=== PATIENT | female | born 1955 | race Hispanic/Latino ===

== ENCOUNTER 2020-01-08 11:54 | Observation (INO) | payer MEDICARE, OTHER ==
[~2020-01-08] VITALS: Ht 167.6 cm; Wt 131.0 kg
[2020-01-08] MEDS ORDERED: CEFTRIAXONE SODIUM 2 GM VIAL ONE (13:40)
[2020-01-08] MEDS ORDERED: DILTIAZEM HCL 5 MG/ML 10 ML VIAL IV ONE (13:40)
[2020-01-08] MEDS ORDERED: SODIUM CHLORIDE 0.9% 50 ML IV ONE (13:41)
[2020-01-08] MEDS ORDERED: SODIUM CHLORIDE 0.9% 1000ML 1,000 ML IV ONE (15:14)
[2020-01-08] MEDS ORDERED: DILTIAZEM 125MG+100 ML NS 125 ML IV SCH (15:15)
[2020-01-08] MEDS ORDERED: SODIUM CHLORIDE 0.9% 1000ML 1,000 ML IV SCH (15:15)
[2020-01-08 18:23] VITALS: BP 128/68; PULSE 85; RESP 18; TEMP 98.1
[2020-01-08 19:00] VITALS: BP 148/72; PULSE 80; RESP 20; TEMP 98.1
[2020-01-08] MEDS ORDERED: POTASSIUM CHLORIDE 20MEQ/100ML 100 ML IV PRN ×2 (20:15)
[2020-01-08] MEDS ORDERED: LIDOCAINE HCL-MPF 1% 2ML VIAL IV PRN ×2 (20:15)
[2020-01-08] MEDS ORDERED: POTASSIUM CHLORIDE 20 MEQ ERTAB PO PRN (20:15)
[2020-01-08] MEDS ORDERED: POTASSIUM CHLORIDE 10% ELIXIR 20 MEQ/15 ML UDCUP PO PRN (20:15)
[2020-01-08] MEDS ORDERED: PHARMACY COMMUNICATION MISC SCH (20:45)
[2020-01-08] MEDS ORDERED: SIMVASTATIN 10 MG TABLET PO SCH (21:00)
[2020-01-08] MEDS ORDERED: BUSPIRONE HCL 5 MG TABLET PO SCH (21:00)
[2020-01-08] MEDS ORDERED: ENOXAPARIN SODIUM 120 MG/0.8ML SQ SCH (21:00)
[2020-01-08] MEDS ORDERED: BACLOFEN 10 MG TABLET PO SCH (21:00)
[2020-01-08 23:00] VITALS: BP 149/65; PULSE 85; RESP 20; TEMP 98
[2020-01-09 03:00] VITALS: BP 139/55; PULSE 78; RESP 20; TEMP 98.6
[2020-01-09] MEDS ORDERED: LEVOTHYROXINE 125 MCG TABLET PO SCH (06:30)
--- NOTE | 2020-01-09 06:39 | NUR ---
Dr Del Rosario rounded on patient. Ok to Discharge home per sheba
--- NOTE | 2020-01-09 08:16 | NUR ---
PATIENT DISCHARGED AT THIS TIME. Patient awaiting family to transport home. Patient is bathing in the meantime.
[2020-01-09] MEDS ORDERED: PHENAZOPYRIDINE HCL 200 MG TABLET PO SCH (08:30)
[2020-01-09] MEDS ORDERED: FAMOTIDINE 20MG TAB 20 MG TAB PO SCH (09:00)
[2020-01-09] MEDS ORDERED: CEFTRIAXONE SODIUM 1 GM IVP SCH (09:00)
[2020-01-09] MEDS ORDERED: PANTOPRAZOLE SODIUM 40 MG TABLET.DR PO SCH (09:00)
[2020-01-09] MEDS ORDERED: CEPHALEXIN 500 MG CAPSULE PO SCH (09:00)
[2020-01-09] MEDS ORDERED: METOPROLOL SUCCINATE 50 MG TAB.SR.24H PO SCH (09:00)
[2020-01-09] MEDS ORDERED: LOSARTAN 50 MG TABLET PO SCH (09:00)
== END 2020-01-09 09:00 | disposition home or self-care (01) ==
LOC: EDH 11:54 → EDHIP 13:54 → INTOOBSV 13:54 → 4DH 18:22
PROVIDERS: ADMIT Internal Medicine; ATTEND Internal Medicine
DX: E86.0 Dehydration (principal); N39.0 Urinary tract infection, site not specified; I48.91 Unspecified atrial fibrillation; E78.00 Pure hypercholesterolemia, unspecified; I10 Essential (primary) hypertension; Z90.49 Acquired absence of other specified parts of digestive tract
CPT/HCPCS: 36415 ×2; 71045; 74176; 80053 ×2; 81001; 82550 ×2; 83605 ×2; 83874; 84145; 84443 ×2; 84484 ×2; 85025 ×2; 85610; 85730; 87040 ×2; 87088; 93005; 99285; G0378 ×12; J0696; J1650 ×2; J3490 ×3; J7030

== ENCOUNTER 2020-05-05 09:03 | Day surgery (SDC) | payer MEDICARE, OTHER ==
[2020-05-02 14:00] VITALS: BP 194/67
[2020-05-02 14:54] LABS: BASOPHILS % (AUTO) 0.7 % (0.0-5.0); EOSINOPHILS % (AUTO) 2.6 % (0.0-8.0); HEMATOCRIT 43.5 % (36-48); LYMPHOCYTES % (AUTO) 36.4 % (21.0-51.0); MEAN CORPUSCULAR HEMOGLOBIN 29.6 pg (27.0-33.0); MEAN CORPUSCULAR HGB CONC 31.7 g/dL (32.0-36.0); MEAN CORPUSCULAR VOLUME 93.1 fL (79-99); MONOCYTES % (AUTO) 8.4 % (3.0-13.0); NEUTROPHILS % (AUTO) 51.6 % (40.0-77.0); PLATELET COUNT (AUTO) 217 K/uL (130-400); RED BLOOD CELL COUNT(AUTO) 4.67 MIL/uL (4.00-5.50); RED CELL DISTRIBUTION WIDTH 12.9 % (11.0-15.5); WHITE BLOOD COUNT (AUTO) 7.3 K/uL (4.8-10.8)
[2020-05-02 15:09] LABS: CREATININE 0.9 mg/dL (0.5-1.5); POTASSIUM 3.6 mmol/L (3.5-5.1)
--- NOTE | 2020-05-04 11:20 | NUR ---
medication: dr. klein made aware of patient still taking xarelto, pt instructed not to take tomorrow. will proceed with surgery.
[~2020-05-05] VITALS: Ht 162.6 cm; Wt 128.7 kg
[2020-05-05] VITALS (17 sets, daily range): BP systolic 121–156; BP diastolic 50–68
[~2020-05-05 09:03] MED LIST: BACL10TA PO; BUSP10TA3 PO; FAMO-136 PO; LEVO125T11 PO; MAGN400C PO; METO-391 PO; NAPR-1023 PO; PANT40TA55 PO; PRAV20TA4 PO; RIVA20TA PO; TELM20TA8 PO; ZOSYN 3.375GM+NS 50ML 50 ML IV SCH
[2020-05-05] MEDS ORDERED: LACTATED RINGERS 1000ML 1,000 ML IV ONE (09:40)
[2020-05-05] MEDS ORDERED: LEG CRAMPS PO (10:35)
[2020-05-05] MEDS ORDERED: IOHEXOL-350 50ML VIAL IV ONE (10:43)
[2020-05-05] MEDS ORDERED: MIDAZOLAM HCL 1 MG/ML 2ML VIAL ONE (11:10)
[2020-05-05] MEDS ORDERED: FENTANYL CITRATE PF 50 MCG/1 ML 2ML VIAL ONE (12:37)
[2020-05-05] MEDS ORDERED: LIDOCAINE HCL MPF 1% 5ML VIAL ONE (12:37)
[2020-05-05] MEDS ORDERED: SUCCINYLCHOLINE 200MG/10ML SYR ONE (12:37)
[2020-05-05] MEDS ORDERED: PROPOFOL 10 MG/ML 20ML VIAL IV ONE (12:37)
--- NOTE | 2020-05-05 14:45 | NUR ---
post received pt from [facility], s/p cystocopy , [address] draining pink color urine. pt awake and alert in bed, no distress noted. vs stable on arrival.
--- NOTE | 2020-05-05 14:50 | NUR ---
fc fc discontinued per md orders. pt/ spouse instructed that pt dtv in 8 hrs. they verbalized understanding
--- NOTE | 2020-05-05 15:15 | NUR ---
dc pt dc home via wc, no distress noted. pt denied any pain or discomforts, pt accompanied by spouse.
== END 2020-05-05 15:15 | disposition home or self-care (01) ==
LOC: DAH 09:03
PROVIDERS: ATTEND Urology
DX: N30.21 Other chronic cystitis with hematuria (principal); Z20.828 Contact with and (suspected) exposure to other viral communicable diseases; N81.12 Cystocele, lateral; N81.89 Other female genital prolapse; J44.9 Chronic obstructive pulmonary disease, unspecified; E66.01 Morbid (severe) obesity due to excess calories; E03.9 Hypothyroidism, unspecified; I10 Essential (primary) hypertension; E78.5 Hyperlipidemia, unspecified; K21.9 Gastro-esophageal reflux disease without esophagitis; I48.91 Unspecified atrial fibrillation; Z79.890 Hormone replacement therapy; Z87.440 Personal history of urinary (tract) infections; Z79.899 Other long term (current) drug therapy; Z90.49 Acquired absence of other specified parts of digestive tract
CPT/HCPCS: 36415; 52005; 74420; 80048; 85025; 93005; A4215; A4221; A4222; A4223; A4344; A4358; A4510; A4600; A4663; A4930; A6260; C1758; C9803; J0330; J2250; J2704; J3010; J3490; J7120 ×2; Q9967; U0003; J2543

== ENCOUNTER 2022-10-10 19:09 | Emergency (ER) | payer MEDICARE, OTHER ==
[~2022-10-10] VITALS: Ht 165.1 cm; Wt 127.0 kg
[~2022-10-10 19:09] MED LIST changes: +LEG CRAMPS PO; -ZOSYN 3.375GM+NS 50ML 50 ML IV SCH
[2022-10-10 20:03] LABS: APPEARANCE,URINE CLEAR (CLEAR); BILIRUBIN,URINE NEGATIVE (NEGATIVE); COLOR,URINE YELLOW (YELLOW); GLUCOSE, URINE (UA) NEGATIVE (NEGATIVE); KETONES,URINE 10 mg/dL (NEGATIVE); LEUKOCYTE ESTERASE ,URINE NEGATIVE Leu/uL (NEGATIVE); NITRATE,URINE NEGATIVE (NEGATIVE); PROTEIN,URINE 10 mg/dL (NEGATIVE)
[2022-10-10 20:12] LABS: BACTERIA,URINE RARE /HPF (None Seen); MUCUS,URINE FEW LPF (None Seen); SQUAMOUS EPITHELIAL CELL,UR RARE /HPF (0-2); YEAST,URINE BUDDING RARE /HPF (None Seen)
[2022-10-10] MEDS ORDERED: SOLU-MEDROL 125MG VIAL IM ONE (21:30)
[2022-10-10] MEDS ORDERED: SOLU-MEDROL 125MG VIAL ONE (21:48)
[2022-10-10 22:16] VITALS: BP 165/68
== END 2022-10-10 22:20 | disposition home or self-care (01) ==
LOC: EDH 19:09
DX: R21 Rash and other nonspecific skin eruption (principal); I10 Essential (primary) hypertension; E78.00 Pure hypercholesterolemia, unspecified; Z90.49 Acquired absence of other specified parts of digestive tract; Z88.8 Allergy status to other drugs, medicaments and biological substances; Z79.899 Other long term (current) drug therapy
CPT/HCPCS: 99283; 81001; 96372; J2930

== ENCOUNTER 2022-10-15 12:36 | Emergency (ER) | payer MEDICARE, OTHER | END 2022-10-15 13:27 | disposition left against medical advice (07) | LOC: EDH 12:36 | DX: K62.5 Hemorrhage of anus and rectum (principal); Z53.21 Procedure and treatment not carried out due to patient leaving prior to being seen by health care provider ==

== ENCOUNTER → 2023-09-05 | Outpatient (CLI) | payer MEDICARE, OTHER | END | disposition home or self-care (01) | LOC: RAH 12:29 | PROVIDERS: ATTEND Internal Medicine | DX: I70.203 Unspecified atherosclerosis of native arteries of extremities, bilateral legs (principal); M79.605 Pain in left leg; M79.604 Pain in right leg | CPT/HCPCS: 93925 ==

== ENCOUNTER 2024-06-23 17:15 | Inpatient (IN) | payer MEDICARE, OTHER ==
[~2024-06-23] VITALS: Ht 162.6 cm; Wt 110.7 kg
[2024-06-23 18:37] LABS: MEAN CORPUSCULAR HEMOGLOBIN 31.4 pg (27.0-33.0); MEAN CORPUSCULAR HGB CONC 32.6 g/dL (32.0-36.0); MEAN CORPUSCULAR VOLUME 96.4 fL (79-99); RED BLOOD CELL COUNT(AUTO) 4.46 MIL/uL (4.00-5.50); RED CELL DISTRIBUTION WIDTH 13.2 % (11.0-15.5); WHITE BLOOD COUNT (AUTO) 12.4 K/uL (4.8-10.8)
[2024-06-23 18:51] LABS: POTASSIUM 3.9 mmol/L (3.5-5.1)
[2024-06-23 18:56] LABS: ALBUMIN 3.6 g/dL (3.5-5.0); BILIRUBIN,DIRECT 0.3 mg/dL (0.0-0.3); BILIRUBIN,TOTAL 1.4 mg/dL (0.2-1.0); TOTAL PROTEIN, SERUM 7.6 g/dL (6.0-8.3)
--- NOTE | 2024-06-23 19:38 | NUR ---
report given to Emilia THORNTON
[2024-06-23 19:45] LABS: CREATINE KINASE, TOTAL 69 U/L (21-232)
[2024-06-23 20:00] VITALS: O2SAT 98
[2024-06-23 20:27] VITALS: BP 127/66; PULSE 120; RESP 18; TEMP 98.6
--- NOTE | 2024-06-23 21:09 | HMCIMG ---
CHEST 1VW CLINICAL HISTORY: A-Fib COMPARISON: 01/08/2020 TECHNIQUE: Single view of the chest was obtained. FINDINGS: The lungs are hypoventilated with hypoventilatory changes. The cardiac size and mediastinum are unremarkable. The bony structures are within normal limits. IMPRESSION: Hypoventilation.
[2024-06-23] MEDS ORDERED: cefTRIAXone 1G VIAL IVPB SCH (22:00)
[2024-06-23] MEDS ORDERED: PHARMACY COMMUNICATION MISC SCH ×2 (22:00→22:30)
[2024-06-23] MEDS: AZITHROMYCIN 500MG+NS 250ML 250 ML IVPB SCH (22:03)
[2024-06-23] MEDS: Solu-medROL 125MG VIAL IVP SCH (22:04)
[2024-06-23 23:28] LABS: CREATINE KINASE, TOTAL 40 U/L (21-232)
[2024-06-23 23:46] VITALS: BP 105/58; PULSE 116; RESP 18; TEMP 98.8
[2024-06-24] VITALS (12 sets, daily range): BP systolic 107–128; BP diastolic 48–67; PULSE 90–124; RESP 18–20; TEMP 97.5–98.4; O2SAT 92–98
[2024-06-24] MEDS: atorVAStatin 10 MG TABLET PO SCH (00:02)
[2024-06-24] MEDS ORDERED: guaiFENesin-DM 200/20MG 10ML PO PRN (04:30)
[2024-06-24] MEDS ORDERED: DiphenhydrAMINE HCL 25 MG CAPSULE PO PRN (04:30)
[2024-06-24] MEDS ORDERED: IpraTROPium/alBUTERol SULFATE 3 ML SOLUTION IH PRN (04:30)
[2024-06-24] MEDS ORDERED: acetaMINOPHEN 325 MG TAB PO PRN (04:30)
[2024-06-24] MEDS ORDERED: ZOLPidem TARTrate 5 MG TAB PO PRN (04:30)
[2024-06-24] MEDS ORDERED: cloNIDine HCL 0.1 MG TABLET PO PRN (04:30)
[2024-06-24] MEDS ORDERED: PHARMACY COMMUNICATION MISC SCH (05:00)
[2024-06-24 05:28] LABS: HEMATOCRIT 39.8 % (36-48); MEAN CORPUSCULAR HEMOGLOBIN 31.3 pg (27.0-33.0); MEAN CORPUSCULAR HGB CONC 33.2 g/dL (32.0-36.0); MEAN CORPUSCULAR VOLUME 94.3 fL (79-99); RED BLOOD CELL COUNT(AUTO) 4.22 MIL/uL (4.00-5.50); RED CELL DISTRIBUTION WIDTH 13.1 % (11.0-15.5); WHITE BLOOD COUNT (AUTO) 16.8 K/uL (4.8-10.8)
[2024-06-24 06:11] LABS: ALANINE AMINOTRANSFERASE 29 U/L (12-78); ASPARTATE AMINOTRANSFERASE 33 U/L (10-37); BILIRUBIN,DIRECT 0.3 mg/dL (0.0-0.3); BILIRUBIN,TOTAL 1.2 mg/dL (0.2-1.0); CARBON DIOXIDE 24 mmol/L (21-32); CHLORIDE 103 mmol/L (101-111); CREATINE KINASE, TOTAL 30 U/L (21-232); GLOMERULAR FILTR. RATE CALC 61 mL/min (>90); GLUCOSE,RANDOM 137 mg/dL (70-105); POTASSIUM 4.1 mmol/L (3.5-5.1); SODIUM SERUM 138 mmol/L (136-145); UREA NITROGEN, BLOOD 20 mg/dL (7-18)
[2024-06-24] MEDS: IpraTROPium/alBUTERol SULFATE 3 ML SOLUTION IH SCH (07:02)
[2024-06-24] MEDS: ZOSYN 3.375GM +NS 50ML IVPB SCH (09:26)
[2024-06-24] MEDS: metOPROLol sucCINATE 50 MG TAB.SR.24H PO SCH (10:54)
--- NOTE | 2024-06-24 12:00 | NUR ---
report given to Brenna transfer to room 422 via wheelchair
--- NOTE | 2024-06-24 12:44 | NUR ---
PATIENT ARRIVED TO UNIT VIA WHEELCHAIR. NO S/S OF DISTRESS NOTED. TELE MONITOR IN PLACE. 20G TO LEFT HAND INTACT AND PATENT. BED IN LOWEST POSITION CALL LIGHT IN REACH
--- NOTE | 2024-06-24 17:40 | HMCSR ---
APPROVED REPORT EXAM: Two-dimensional and M-mode echocardiogram with Doppler and color Doppler. INDICATION ICD: Atrial fibrillation 2D Dimensions RVDd3.4 cmLVEF(%)60.1 (>50%)LVED Vol(simp.)50.0 mL IVSd1.2 (0.7-1.1cm)FS(%)32 %LVES Vol(simp.)17.0 mL LVDd4.1 (3.8-5.6cm)LA (2D)4.8 (1.6-4.0cm)LVEF(%, simp.)66 % PWd1.4 (0.7-1.1cm)Ao Root(2D)3.4 (2.0-3.7cm)LA ESV INDEX (4CH)53.60 mL/m2 IVSs1.2 cmLVOT diam1.9 (1.8-2.4cm)LA ESV INDEX (2CH)43.10 mL/m2 LVDs2.8 (2.5-4.0cm)IVC diam2.1 cmLA ESV INDEX (BP)50.20 mL/m2 PWs1.3 cm Deformation Strain Apical 4-15.0 % Apical 2-17.0 % Apical 3-17.0 % Global Strain-16.0 % M-Mode Dimensions EPSS0.9 cm LA (MM)5.5 (1.6-4.0cm) Ao Root(MM)2.7 (2.0-3.7cm) Aortic Valve AoV VTI0.3 mAo Mean GR4.0 mmHgLVOT VTI0.19 m CORBY (VMAX)2.0 cm2AVA (VTI) 2.0 cm2 Mitral Valve MV E Vael918.6 cm/sDECEL Qdpb918 ms MV A Vmax83.4 cm/sP 1/2 T66 ms E/A ratio1.3MVA (PHT)3.4 cm2 TDI E/E' Weccef85.1E/E' Kjqpewd36.3 Medial E' Peak V8.20 cm/sLateral E' Peak V10.40 cm/s Pulmonary Valve PV VTI0.19 mPV Mean GR3 mmHg Tricuspid Valve TR Vmax2.0 m/sRAP (EST) 8 qiJbWEMN24.0 mmHg TR Peak GR17.0 mmHg Left Ventricle Left ventricular cavity size is normal. GLS-16.0% Mild concentric left ventricular hypertrophy. LVEF is 55-60%. E-a fusion Right Ventricle The right ventricle is normal size. The right ventricular systolic function is normal. Atria The left atrium is severely dilated. LASVI 50mL/m. The right atrium is moderately dilated. Aortic Valve The aortic valve is normal in structure and function. No aortic regurgitation is present. There is no aortic valvular stenosis. Mitral Valve Posterior annular calcification noted. The mitral valve is mildly thickened. There is no mitral valve regurgitation noted. There is no mitral valve stenosis. Tricuspid Valve The tricuspid valve is normal in structure and function. There is trace of tricuspid valve regurgitat ion noted. Pulmonic Valve The pulmonary valve is normal in structure and function. There is no pulmonic valvular regurgitation. Great Vessels The aortic root is normal in size. IVC is normal in size and collapses <50% with inspiration. Pericardium No pericardial effusion. Other Information Quality : Fair Conclusion Left ventricular cavity size is normal. LVEF is 55-60%. E-a fusion The right ventricle is normal size. The right ventricular systolic function is normal. The left atrium is severely dilated. LASVI 50mL/m. The right atrium is moderately dilated. No valvular pathology. No pericardial effusion.
[2024-06-24] MEDS: Solu-medROL 40MG VIAL IVP SCH (19:50)
[2024-06-24] MEDS: busPIRone HCL 5 MG TABLET PO SCH (19:51)
--- NOTE | 2024-06-24 20:20 | HP ---
HISTORY OF PRESENT ILLNESS: The patient is a direct admission from my office. She came complaining of generalized body weakness, shortness of breath, productive cough feeling sick unable to ambulate a few steps without feeling that she is going to fall to the floor. REVIEW OF SYSTEMS: No fever, chills, seizures or loss of consciousness. No chest pain, palpitations, dizziness. No abdominal pain, nausea, vomiting, diarrhea. No dysuria, urgency, frequency. No rashes, petechia or ecchymoses. No hematemesis, melena, hematuria, or rectal bleeding. PAST MEDICAL HISTORY: Hypertension, atrial fibrillation, chronic anticoagulation, hypothyroidism and generalized anxiety disorder. MEDICATIONS: Xarelto, famotidine, telmisartan, pravastatin, metoprolol, buspirone, Synthroid. ALLERGIES: No known drug allergies. PHYSICAL EXAMINATION: GENERAL: She is awake, alert, oriented in person, time and place. VITAL SIGNS: Blood pressure 82/56, pulse 96, respiratory rate 24. HEENT: Normocephalic, atraumatic. LUNGS: Decreased breath sounds bilaterally with inspiratory wet rales in both bases. HEART: S1, S2 are distant. ABDOMEN: Soft, nontender, no masses prominent. EXTREMITIES: No clubbing, cyanosis, no edema. LABORATORY DATA: Peak flow 140. O2 saturation 97%. Influenza antigens A and B and COVID tests were negative. ASSESSMENT AND PLAN: * Generalized body weakness. The patient will be a direct admission from my office. Start her on IV fluids, IV antibiotics. * Acute exacerbation of chronic bronchitis. Start her on IV Rocephin, Zithromax, Solu-Medrol. * Atrial fibrillation, rate controlled. Continue current medications. Anticoagulation, continue with Eliquis. * Follow up in a.m. with results of tests. DOS: 06/24/2024 TID: [id number] RECEIPT: [id number] MTDD
[2024-06-24] MEDS ORDERED: NON-FORMULARY MEDICATION 1 EACH (Pravastatin Sodium 40 MG) PO SCH (21:00)
[2024-06-25] VITALS (8 sets, daily range): BP systolic 95–99; BP diastolic 41–52; PULSE 95–124; RESP 18; TEMP 98–98.4; O2SAT 93–94
--- NOTE | 2024-06-25 04:22 | PN ---
SUBJECTIVE: The patient is feeling significantly improved. She was started on IV antibiotics, bronchodilators, steroids. OBJECTIVE: GENERAL: Currently, she is awake, alert, oriented in person, time, and place, not in distress. VITAL SIGNS: In the chart. HEENT: Normocephalic and atraumatic. LUNGS: Decreased breath sounds bilaterally. No wheezes, rhonchi. No wet rales. HEART: S1, S2 are distant. No S3, S4. No friction rubs. ABDOMEN: Prominent. Soft. Nontender. EXTREMITIES: No clubbing, cyanosis nor edema. LABORATORY, DIAGNOSTIC AND IMAGING DATA: WBC count yesterday was 12.4, today is 16.8. Hemoglobin 13.2. Sodium 138, potassium 4.1, BUN today 20, creatinine 1, glucose 137. Total bilirubin 1.4 yesterday to 1.2 today. Troponin three sets less than 4. Albumin 3. Chest x-ray reported hypoventilation. Echocardiogram reported left ventricular ejection fraction of 55% to 60%. Left atrium severely dilated with volume of 50 mL per square meter. No pericardial effusion. ASSESSMENT AND PLAN: * Chronic obstructive pulmonary disease exacerbation. Continue with bronchodilators, steroids, antibiotics. * Atrial fibrillation, rate controlled. Anticoagulation. Continue with Eliquis. Follow up in a.m. with results of tests. Plan to discharge if stable. DOS: 06/24/2024 TID: [id number] RECEIPT: [id number] MTDD
[2024-06-25 05:39] LABS: BASOPHILS # (AUTO) 0.02 K/uL (0.00-0.20); BASOPHILS % (AUTO) 0.1 % (0.0-5.0); HEMATOCRIT 36.6 % (36-48); IMMATURE GRANULOCYTE ABSOLUTE 0.14 K/uL (0-1); LYMPHOCYTES # (AUTO) 0.7 K/uL (1.0-4.8); LYMPHOCYTES % (AUTO) 3.7 % (21.0-51.0); MEAN CORPUSCULAR HEMOGLOBIN 31.8 pg (27.0-33.0); MEAN CORPUSCULAR HGB CONC 33.3 g/dL (32.0-36.0); MEAN CORPUSCULAR VOLUME 95.3 fL (79-99); MONOCYTES # (AUTO) 0.7 K/uL (0.1-1.0); MONOCYTES % (AUTO) 3.8 % (3.0-13.0); NEUTROPHILS # (AUTO) 17.5 K/uL (1.8-7.7); NEUTROPHILS % (AUTO) 91.7 % (40.0-77.0); PLATELET COUNT (AUTO) 248 K/uL (130-400); RED BLOOD CELL COUNT(AUTO) 3.84 MIL/uL (4.00-5.50); RED CELL DISTRIBUTION WIDTH 13.5 % (11.0-15.5); WHITE BLOOD COUNT (AUTO) 19.1 K/uL (4.8-10.8)
[2024-06-25 05:55] LABS: ALBUMIN 2.6 g/dL (3.5-5.0); BILIRUBIN,TOTAL 0.6 mg/dL (0.2-1.0); CREATININE 1.1 mg/dL (0.5-1.0); POTASSIUM 3.9 mmol/L (3.5-5.1); TOTAL PROTEIN, SERUM 6.4 g/dL (6.0-8.3)
[2024-06-25] MEDS: levoTHYROxine 125 MCG TABLET PO SCH (06:07)
[2024-06-25] MEDS ORDERED: metOPROLol sucCINATE 50 MG TAB.SR.24H PO SCH (09:00)
[2024-06-25] MEDS: TELMISARTAN PO SCH (09:00)
[2024-06-25] MEDS: FAMOTIDINE 20MG TAB PO SCH (09:08)
[2024-06-25] MEDS: RIVAROXABAN 20 MG TABLET PO SCH (09:09)
[2024-06-25] MEDS: MAGNESIUM OXIDE 400 MG TABLET PO SCH (09:09)
== END 2024-06-25 12:15 | disposition home or self-care (01) | DRG 202 ==
LOC: EDH 17:15 → EDHIP 17:32 → 2AH 20:17 → 4DH 06-24 12:30
PROVIDERS: ADMIT Internal Medicine; ATTEND Internal Medicine
PROC: 5A0935A Assistance with Respiratory Ventilation, Less than 24 Consecutive Hours, High Flow/Velocity Cannula (ICD-10-PCS; principal; 2024-06-23)
DX: J20.9 Acute bronchitis, unspecified (principal); J44.1 Chronic obstructive pulmonary disease with (acute) exacerbation; I48.91 Unspecified atrial fibrillation; E03.9 Hypothyroidism, unspecified; I10 Essential (primary) hypertension; Z79.01 Long term (current) use of anticoagulants
CPT/HCPCS: 36415; 71045; 80048; 80053; 80076; 82550; 84484; 85025; 85027; 93306; 93356; 94640; 94664; G0378; J0456; J2543; J2919

== ENCOUNTER → 2024-09-17 | Outpatient (CLI) | payer MEDICARE ==
[~2024-09-17] MED LIST changes: -BACL10TA PO; -LEG CRAMPS PO; -NAPR-1023 PO; -PANT40TA55 PO
[2024-09-17 12:51] LABS: THYROID STIMULATING HORMONE 6.34 uIU/mL (0.36-3.74)
== END | disposition home or self-care (01) ==
LOC: LAB 10:04
PROVIDERS: ATTEND Student in an Organized Health Care Education/Training Program
DX: E78.5 Hyperlipidemia, unspecified (principal); E03.9 Hypothyroidism, unspecified
CPT/HCPCS: 36415; 80061; 84439; 84443; 84481

== ENCOUNTER 2024-11-03 06:45 | Day surgery (SDC) | payer MEDICARE ==
[2024-11-01 13:57] LABS: BASOPHILS # (AUTO) 0.04 K/uL (0.00-0.20); BASOPHILS % (AUTO) 0.6 % (0.0-5.0); HEMATOCRIT 41.1 % (36-48); IMMATURE GRANULOCYTE ABSOLUTE 0.01 K/uL (0-1); LYMPHOCYTES # (AUTO) 2.4 K/uL (1.0-4.8); LYMPHOCYTES % (AUTO) 36.7 % (21.0-51.0); MEAN CORPUSCULAR HEMOGLOBIN 31.1 pg (27.0-33.0); MEAN CORPUSCULAR HGB CONC 32.6 g/dL (32.0-36.0); MEAN CORPUSCULAR VOLUME 95.4 fL (79-99); MONOCYTES # (AUTO) 0.6 K/uL (0.1-1.0); MONOCYTES % (AUTO) 8.7 % (3.0-13.0); NEUTROPHILS # (AUTO) 3.3 K/uL (1.8-7.7); NEUTROPHILS % (AUTO) 50.8 % (40.0-77.0); PLATELET COUNT (AUTO) 225 K/uL (130-400); RED BLOOD CELL COUNT(AUTO) 4.31 MIL/uL (4.00-5.50); RED CELL DISTRIBUTION WIDTH 11.9 % (11.0-15.5); WHITE BLOOD COUNT (AUTO) 6.6 K/uL (4.8-10.8)
[2024-11-01 14:01] VITALS: BP 127/57; PULSE 78; RESP 16; TEMP 97.3
[2024-11-01 14:04] LABS: CREATININE 1.3 mg/dL (0.5-1.0); POTASSIUM 4.2 mmol/L (3.5-5.1)
[~2024-11-03] VITALS: Ht 162.6 cm; Wt 111.1 kg
[~2024-11-03 06:45] MED LIST changes: +AMIO400T4 PO; +BACL10TA PO; -FAMO-136 PO; +FAMO20TA8 PO; -LEVO125T11 PO; +LEVO137C5 PO; +MAGN250T10 PO; -MAGN400C PO; -METO-391 PO; +METO25TA6 PO; -PRAV20TA4 PO; +PRAV40TA3 PO
--- NOTE | 2024-11-03 07:25 | NUR ---
EKG WAS DONE SHOWING NSR. PT INFORMED OF FINDINGS ON EKG. I DID TELL HER I WILL SPEAK WITH DR. SALAZAR ABOUT HER EKG.
--- NOTE | 2024-11-03 07:30 | NUR ---
DR. SALAZAR WAS CONTACTED WAS TOLD PT IS OK TO BE DISCHARGED HOME AND TO FOLLOW UP IN 2 WEEKS WITH HIM. PT WAS GIVEN A COPY OF HER EKG AND TOLD HER TO FOLLOW UP WITH DR. SALAZAR IN 2 WEEKS. EKG FINDINGS WERE EXPLAINED TO PT AND DAUGHTER.
--- NOTE | 2024-11-03 08:17 | EKG ---
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
== END 2024-11-03 07:45 | disposition home or self-care (01) ==
LOC: DAH 06:45
PROVIDERS: ATTEND Internal Medicine Cardiovascular Disease
DX: I48.11 Longstanding persistent atrial fibrillation (principal); Z53.8 Procedure and treatment not carried out for other reasons; Z79.899 Other long term (current) drug therapy
CPT/HCPCS: 36415; 80048; 85025; 93005

== ENCOUNTER → 2024-12-19 | Outpatient (CLI) | payer MEDICARE ==
[2024-12-19 22:29] VITALS: PULSE 60; RESP 16
[2024-12-19 23:00] VITALS: PULSE 58; RESP 14
[2024-12-19 23:30] VITALS: PULSE 54; RESP 14
[2024-12-20] VITALS (12 sets, daily range): PULSE 52–58; RESP 10–20
--- NOTE | 2024-12-20 04:33 | NUR ---
TELMISARTAN 20MG,METOPROLOL SUCCINATE 25MG,BUSPIRONE 10MG,MAGNESIUM ,PRAVASTATIN 40MG,BACLOFEN 10MG,LEVAQUIN,PYRIDIUM,CEFADROXIL Addendum: 12/20/24 at 0438 by CECILE SUTTON Amended: Links added.
== END | disposition home or self-care (01) ==
LOC: SLP 20:35
PROVIDERS: ATTEND Student in an Organized Health Care Education/Training Program
DX: G47.33 Obstructive sleep apnea (adult) (pediatric) (principal); R06.83 Snoring; G47.9 Sleep disorder, unspecified
CPT/HCPCS: 95810